=== PATIENT | male | born 1950 | race Caucasian/White ===

== ENCOUNTER 2018-01-12 22:03 | Observation (INO) ==
[2018-01-12] MEDS ORDERED: Alteplase (Activase) 81 MG in EMPTY BAG 1 EACH IVPB ONE (22:09)
[2018-01-12] MEDS ORDERED: Alteplase (Activase) 9 MG in EMPTY BAG 1 EACH IVP ONE (22:09)
[2018-01-12] MEDS ORDERED: Isovue-370 500 ML INFUS..BTL IV ONE (22:17)
[2018-01-12 22:29] LABS: Basophils # 0.1 K/mcL (0.0-0.2); Basophils % 0.6 %; Eosinophils # 0.3 K/mcL (0.0-0.6); Eosinophils % 3.5 %; Hematocrit 42.9 % (37.5-50.1); Hemoglobin 14.7 g/dL (12.9-16.9); Immature Granulocytes % 0.3 % (0-4); Lymphocytes # 3.2 K/mcL (0.6-4.6); Lymphocytes % 33.5 %; Mean Corpuscular HGB Conc 34.3 g/dL (31.6-35.5); Mean Corpuscular Hemoglobin 29.6 pg (28.0-33.3); Mean Corpuscular Volume 86.3 fL (83.0-100.0); Mean Platelet Volume 11.7 fL (9.4-12.4); Monocytes # 0.6 K/mcL (0.0-1.3); Monocytes % 5.9 %; Neutrophils # 5.3 K/mcL (1.6-8.9); Platelet Count 215 K/mcL (140-400); Red Blood Count 4.97 M/mcL (4.19-5.50); Red Cell Distribution Width 13.3 % (11.5-14.5); Segmented Neutrophils % 56.2 %
[2018-01-12 22:39] LABS: INR 1.1; Prothrombin Time 12.2 Seconds (9.4-12.1)
[2018-01-12 22:42] LABS: BUN/Creatinine Ratio 17 (6-26); Blood Urea Nitrogen 15 mg/dL (8-23); Calcium 9.2 mg/dL (8.6-10.3); Carbon Dioxide 24 mEq/L (23-29); Chloride 107 mEq/L (98-107); Glucose 102 mg/dL (70-105); Osmolality,Calculated 289 (280-300); Potassium 3.8 mEq/L (3.5-5.1); Sodium 139 mEq/L (136-145); eGFR For African Americans > 60 (> 60); eGFR For Non-African Americans > 60 (> 60)
[2018-01-12 22:43] LABS: Troponin I < 0.03 ng/mL (< 0.04)
--- NOTE | 2018-01-12 23:23 | Emergency Department Note ---
Disposition Clinical Impression: TIA (transient ischemic attack) Qualifiers: Transient cerebral ischemia type: unspecified Qualified Code(s): G45.9 - Transient cerebral ischemic attack, unspecified Disposition: Admitted As Inpatient Condition: Fair Time of Disposition: 12:24 Neuro HPI - General Chief Complaint: ED Neuro Symptoms/Deficit Stated Complaint: Poss Stroke Time Seen by Provider: 01/12/18 22:08 Source: patient Mode of arrival: ambulatory Limitations: no limitations Nursing Notes Reviewed: Yes Vital Signs Reviewed: Yes - History of Present Illness HPI Narrative: Patient is a 67-year-old male who presents to [facility] ED with a chief complaint of slurred speech and generalized weakness. States his symptoms started at 8:30 this evening while he was working in his garage. This was witnessed by his and daughter. gave him an aspirin. Then called the squad. Patient denies any history of stroke. He does have a history of prothrombin G mutation which puts him at higher risk of clotting. states he is supposed to be taking a daily aspirin but he has not been for several days now. Denies any chest pain, difficulty breathing, abdominal pain, problems with urination or bowel movements. Past medical history significant for hypertension. Onset of Symptoms Date: 01/13/18 Onset of Symptoms Time: 20:30 Symptom Onset Unknown: No Timing confirmed by: spouse Location: speech, dysarthria History of same: No Severity: mild Symptoms Improving: Yes Improves with: none Worsens with: none Context: sudden onset On Anticoagulants: No Associated symptoms: Denies: confusion, chest pain, cough, fever/chills, headaches, nausea/vomiting, shortness of breath, syncope, weakness Treatments Prior to Arrival: none - Related Data Home Medications: Home Medications Medication Instructions Recorded Confirmed Aspirin [Lo-Dose Aspirin EC] 81 mg PO DAILY 01/13/18 01/13/18 BuPROPion [Wellbutrin] 100 mg PO BID 01/13/18 01/13/18 Ergocalciferol (VITAMIN D2) 50,000 unit PO FR 01/13/18 01/13/18 [Vitamin D2] Furosemide [Lasix] 20 mg PO DAILY 01/13/18 01/13/18 Losartan [Cozaar] 50 mg PO DAILY 01/13/18 01/13/18 Meloxicam [Mobic] 15 mg PO DAILY 01/13/18 01/13/18 Potassium Chloride [Klor-Con 10 meq PO DAILY 01/13/18 01/13/18 Sprinkle] Allergies/Adverse Reactions: Allergies Allergy/AdvReac Type Severity Reaction Status Date / Time No Known Allergies Allergy Verified 01/13/18 09:19 All systems ED: reviewed and negative except as stated. Past Medical History - Past Medical History Attestation: Yes The following information was validated with the patient. Source: patient Medical history: Reports: cancer, hypertension - Social History Smoking Status: Never smoker Smokeless Tobacco Status: Yes Alcohol use: Reports: none Drug use: Reports: none Physical Exam - General Limitations: no limitations General appearance: alert, in no apparent distress - Head Head exam: atraumatic, normocephalic, normal inspection - Eye Eye exam: Present: normal appearance, EOMI - ENT ENT exam: normal exam, normal oropharynx, mucous membranes moist - Neck Neck exam: Present: normal inspection, full ROM, trachea midline - Chest Chest inspection: Present: normal inspection, symmetric chest wall rise - Respiratory Respiratory exam: Present: normal lung sounds bilaterally - Cardiovascular Cardiovascular exam: Present: regular rate, normal rhythm, normal heart sounds - Abdominal Exam Abdominal exam: Present: soft, Non-Tender. Absent: tenderness, distention, guarding, rebound, rigidity - Extremities Exam Extremities exam: Present: normal inspection, full ROM. Absent: tenderness, pedal edema - Back Exam Back exam: Present: normal inspection, full ROM. Absent: tenderness - Neurological Exam Neurological exam: Present: alert, oriented X3, CN II-XII intact. Absent: motor sensory deficit - Psychiatric Psychiatric exam: Present: normal affect, normal mood - Skin Skin exam: Present: warm, dry, intact, normal color Course Course Narrative: Patient seen and examined. Complaining of slurred speech and generalized weakness. Concern for possible CVA. Stroke alert was activated. He does have an NIH score of 2 including slurred speech and left-sided pronator drift. I did not appreciate any overt weakness on one side or another. CT of the head along with CTA head and CTA of the neck ordered. Patient took an aspirin prior to arrival. - Reevaluation(s) Reevaluation #1: Labwork, CT head unremarkable. We will admit for CVA workup. I discussed with the hospitalist who has accepted patient for admission. Patient's symptoms have resolved. CTA head and neck still pending. Time: 12:21 Vital Signs Temperature 98.1 F 01/12/18 22:05 Pulse Rate 68 01/12/18 22:05 Respiratory Rate 27 01/12/18 22:05 Blood Pressure 170/99 01/12/18 22:05 O2 Sat by Pulse Oximetry 96 01/12/18 22:05 Temperature 97.8 F 01/14/18 05:06 Pulse Rate 60 01/14/18 05:06 Respiratory Rate 15 01/14/18 05:06 Blood Pressure 145/65 01/14/18 05:06 O2 Sat by Pulse Oximetry 96 01/14/18 04:31 Oxygen Delivery Oxygen Delivery Room Air Neuro Symptoms/Deficit - Medical Records Medical records reviewed: Yes I reviewed the patient's medical records. - Lab Data Lab results reviewed: Yes I reviewed the patient's lab results. Result diagrams: 01/14/18 01:13 01/14/18 01:13 Lab Results 01/12/18 01/12/18 01/12/18 Range/Units 22:08 22:08 22:08 WBC 9.4 (4.3-11.1) K/mcL RBC 4.97 (4.19-5.50) M/mcL Hgb 14.7 (12.9-16.9) g/dL Hct 42.9 (37.5-50.1) % MCV 86.3 (83.0-100.0) fL MCH 29.6 (28.0-33.3) pg MCHC 34.3 (31.6-35.5) g/dL RDW 13.3 (11.5-14.5) % Plt Count 215 (140-400) K/mcL MPV 11.7 (9.4-12.4) fL Immature Gran % 0.3 (0-4) % Seg Neutrophils % 56.2 % Lymphocytes % 33.5 % Monocytes % 5.9 % Eosinophils % 3.5 % Basophils % 0.6 % Neutrophils # 5.3 (1.6-8.9) K/mcL Lymphocytes # 3.2 (0.6-4.6) K/mcL Monocytes # 0.6 (0.0-1.3) K/mcL Eosinophils # 0.3 (0.0-0.6) K/mcL Basophils # 0.1 (0.0-0.2) K/mcL PT 12.2 H (9.4-12.1) Seconds INR 1.1 APTT 35.0 (26.0-36.0) Seconds Sodium 139 (136-145) mEq/L Potassium 3.8 (3.5-5.1) mEq/L Chloride 107 (98-107) mEq/L Carbon Dioxide 24 (23-29) mEq/L BUN 15 (8-23) mg/dL Creatinine 0.86 (0.70-1.30) mg/dL Est GFR ( Amer) > 60 (> 60) Est GFR (Non-Af Amer) > 60 (> 60) BUN/Creatinine Ratio 17 (6-26) Glucose 102 (70-105) mg/dL Calculated Osmolality 289 (280-300) Calcium 9.2 (8.6-10.3) mg/dL Troponin I < 0.03 (< 0.04) ng/mL - Radiology Data Radiology results reviewed: Yes I reviewed the patient's radiology results. Head CT 01/12/18 22:08 IMPRESSION: No acute intracranial abnormality. Mild chronic microangiopathic ischemic changes of cerebral white matter. Left maxillary mucosal thickening. Critical results were called by Dr. Kofi Rivera to Dr. Martini on 01/12/2018 at 22:26. D/ / Kofi Rivera / Kofi Rivera Interpreting Provider: Kofi Rivera Head CTA 01/12/18 22:17 IMPRESSION: 1. 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 Otherwise, no intracranial arterial abnormality. 2. No arterial abnormality in the neck. 3. Left maxillary sinusitis. 4. Mild C5-6 degenerative disc disease. D/ / Marty Stearns / Marty Stearns Interpreting Provider: Marty Stearns Neck CTA 01/12/18 22:17 IMPRESSION: 1. 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 Otherwise, no intracranial arterial abnormality. 2. No arterial abnormality in the neck. 3. Left maxillary sinusitis. 4. Mild C5-6 degenerative disc disease. D/ / Marty Stearns / Marty Stearns Interpreting Provider: Marty Stearns Stroke Scale - Level of Consciousness LOC: Alert - LOC Questions LOC Questions: Answers both correctly - LOC Commands LOC Commands: Performs both correctly - Best Gaze Best Gaze: Normal - Visual Visual: No visual loss - Facial Palsy Facial Palsy: Normal - Motor Arms Motor Arm-Left: Drift, does NOT hit bed Motor Arm-Right: No drift for 10 seconds - Motor Legs Motor Leg-Left: No drift for 5 seconds Motor Leg-Right: No drift for 5 seconds - Limb Ataxia Limb Ataxia: Normal, No Ataxia - Sensory Sensory: Normal - Best Language Best Language: No aphasia - Dysarthria Dysarthria: Mild, slurs some words - Extinction and Inattention Extinction and Inattention: Normal - NIHSS Total Score NIHSS Total Score: 2 Attestation Statement - Attestation Attestation: I examined this patient and my medical decision-making was reviewed with the Resident Physician. I agree with the documented findings, disposition and treatment plan as described except to the extent set forth below. Findings consistent with possible TIA. Symptoms are now resolved, asa was given prior to arrival at the ED. Patient will be admitted for medical maximization and advanced testing. NIH score was 0 at time of admission,
--- NOTE | 2018-01-13 01:52 | Internal Med History&Physical ---
Date of Encounter: 01/13/18 Internal Medicine - H&P: HPI History of present illness: Mr. Gaytan is a 67 year old male who presents to [facility] ED with a chief complaint of slurred speech and generalized weakness. States his symptoms started at 8:30 this evening while he was working in his garage. This was witnessed by his and daughter. gave him an aspirin. Then called the squad. Patient denies any history of stroke. He does have a history of prothrombin G mutation which puts him at higher risk of clotting. states he is supposed to be taking a daily aspirin but he has not been for several days now. Denies any chest pain, difficulty breathing, abdominal pain, problems with urination or bowel movements. Past medical history significant for hypertension. Past Med Surg Social Fam HX - Past Medical History Medical history: cancer, hypertension Additional medical history: Prothrombin gene mutation Psychiatric history: depression - Past Surgical History Additional surgical history: skin cancer,right total knee - Social History Smoking Status: Never smoker Smokeless Tobacco Status: Yes Alcohol use: none Drug use: none - Family History Mother Living Status: Cause of : cancer Hx Family Cancer: Yes Hx Family Endocrine Disorder: Yes (diabetes) Father Living Status: Cause of : cancer Hx Family Cardiac Disorders: Yes Hx Family Cancer: Yes Internal Medicine - H&P: Meds Aspirin [Lo-Dose Aspirin EC] 81 mg PO DAILY 01/13/18 [History] BuPROPion [Wellbutrin] 100 mg PO BID 01/13/18 [History] Furosemide [Lasix] 20 mg PO DAILY 01/13/18 [History] Losartan [Cozaar] 50 mg PO DAILY 01/13/18 [History] Meloxicam [Mobic] 15 mg PO DAILY 01/13/18 [History] Potassium Chloride [Klor-Con Sprinkle] 10 meq PO DAILY 01/13/18 [History] 3 Allergy/AdvReac Type Severity Reaction Status Date / Time No Known Allergies Allergy Verified 05/26/15 09:15 All Systems PM: A 10-system review of systems was performed and is negative for pertinent findings except as documented above in the HPI. - Constitutional Vitals: Temp Pulse Resp BP Pulse Ox 98.2 F 59 17 171/97 97 01/13/18 00:27 01/13/18 00:27 01/13/18 00:27 01/13/18 00:27 01/13/18 01:00 Internal Med - H&P Results - Labs CBC & Chem 7: 01/13/18 03:36 01/12/18 22:08 - Assessment and plan (1) TIA (transient ischemic attack) Current Visit: Yes Status: Acute Assessment and plan: TIA PLAN: -CPP x 2 q 8 hr -EKG now and in AM -ASA -Tylenol 650 mg PO q 4-6 hr PRN headache Qualifiers: Transient cerebral ischemia type: unspecified Qualified Code(s): G45.9 - Transient cerebral ischemic attack, unspecified (2) DVT prophylaxis Current Visit: Yes Status: Acute (3) Essential (primary) hypertension Current Visit: Yes Status: Acute - Time Spent With Patient Total time spent is greater than 50% in coordination of care (as documented) at patient's floor/unit and/or counseling patient:
[2018-01-13] MEDS ORDERED: Naloxone 0.4 MG/ML INJ IVP PRN (02:28)
[2018-01-13] MEDS ORDERED: Acetaminophen 325 MG TABLET PO PRN (02:28)
[2018-01-13 03:41] LABS: Bilirubin,Urine Negative (Negative); Blood,Urine Negative (Negative); Clarity,Urine Clear (Clear); Color,Urine Yellow (Yellow); Glucose,Urine (UA) Normal (Normal); Ketones,Urine Negative (Negative); Leukocyte Esterase,Urine Negative (Negative); Nitrite,Urine Negative (Negative); PH,Urine 5.5 pH Units (5.0-8.0); Protein,Urine Negative (Neg-Trace); Specific Gravity,Urine > 1.030 (1.010-1.025); Urobilinogen,Urine Normal (Normal)
[2018-01-13 04:31] LABS: Basophils # 0.1 K/mcL (0.0-0.2); Basophils % 0.7 %; Eosinophils # 0.3 K/mcL (0.0-0.6); Eosinophils % 3.6 %; Hematocrit 40.2 % (37.5-50.1); Hemoglobin 13.5 g/dL (12.9-16.9); Immature Granulocytes % 0.2 % (0-4); Lymphocytes # 3.1 K/mcL (0.6-4.6); Lymphocytes % 37.1 %; Mean Corpuscular HGB Conc 33.6 g/dL (31.6-35.5); Mean Corpuscular Hemoglobin 29.1 pg (28.0-33.3); Mean Corpuscular Volume 86.6 fL (83.0-100.0); Mean Platelet Volume 11.8 fL (9.4-12.4); Monocytes # 0.5 K/mcL (0.0-1.3); Monocytes % 6.4 %; Neutrophils # 4.4 K/mcL (1.6-8.9); Platelet Count 200 K/mcL (140-400); Red Blood Count 4.64 M/mcL (4.19-5.50); Red Cell Distribution Width 13.3 % (11.5-14.5)
[2018-01-13 04:39] LABS: INR 1.2; Prothrombin Time 12.6 Seconds (9.4-12.1)
[2018-01-13 04:42] LABS: Activated Partial Thrombo Time 33.6 Seconds (26.0-36.0)
[2018-01-13 04:56] LABS: Alanine Aminotransferase 27 Units/L (7-52); Albumin 3.8 g/dL (3.5-5.7); Albumin/Globulin Ratio 1.5 (1.1-2.2); Alkaline Phosphatase 62 Units/L (34-104); Aspartate Amino Transferase 18 Units/L (13-39); BUN/Creatinine Ratio 16 (6-26); Bilirubin,Total 0.5 mg/dL (0.3-1.0); Blood Urea Nitrogen 13 mg/dL (8-23); Carbon Dioxide 27 mEq/L (23-29); Chloride 106 mEq/L (98-107); Chol/HDL Ratio 5.2 (0-4.9); Cholesterol 170 mg/dL (< 200); Globulin 2.5 g/dL (2.4-3.5); Glucose 115 mg/dL (70-105); HDL Cholesterol 33 mg/dL (40-59); LDL Cholesterol,Calculated 116 mg/dL (0-99); Magnesium 2.1 mg/dL (1.6-2.6); Osmolality,Calculated 287 (280-300); Phosphorous 2.8 mg/dL (2.7-4.5); Potassium 3.7 mEq/L (3.5-5.1); Sodium 138 mEq/L (136-145); Total Protein 6.3 g/dL (6.4-8.9); Triglycerides 103 mg/dL (< 150); eGFR For African Americans > 60 (> 60); eGFR For Non-African Americans > 60 (> 60)
[2018-01-13] MEDS: Furosemide 20 MG TABLET PO SCH (07:45)
[2018-01-13] MEDS: Aspirin Enteric Coated 81 MG Tablet PO SCH (11:35)
--- NOTE | 2018-01-13 11:40 | Event Note ---
Date of Encounter: 01/13/18 Time of Encounter: 11:25 S: Patient had no acute events after admission. He states that he is feeling "much better." states speech and strength back to normal. He denies any neurological deficits at this time. We discussed importance of medication compliance today. He has some peripheral vision difficulties out of left eye. O: Gen - Awake, alert, oriented, no acute distress HEENT - NCAT, PERRLA, EOMI, no facial droop, hearing grossly intact, oropharynx benign CV - RRR, normal S1 and S2, no M/R/G, no BLE edema Resp - Normal WOB, CTAB, no W/R/R GI - Soft, NT/ND, no masses, normal bowel sounds, no HSP Neuro - No focal deficits, strength and sensation equal bilaterally, CN grossly intact Psych - Normal mood and affect, no depression/anxiety/agitation Skin - Warm, dry, no rashes, hypopigmented area on right cheek A/P: 1) TIA vs CVA - Severe stenosis of right carotid. Elevated LDL. ECHO results pending. Obtain MRI brain. Restart home aspirin. Continue home anti- hypertensives. Start lipitor 40 mg QHS. Neurology consulted; appreciate input. Will await further recommendations. 2) HTN - Continue home medications. 3) DVT Prophylaxis - Start lovenox 40 mg SQ QD and SCDs.
[2018-01-13] MEDS: *HR* Enoxaparin 40 MG/0.4 ML SYRINGE SQ SCH (16:20)
--- NOTE | 2018-01-13 16:25 | Electrocardiograph Report ---
[place] [id number] Test Date: 2018-01-12 Pat Name: Reagan Gaytan Department: 103 Room: E31 Gender: M [employer] Therapist: [place] : [id number] Requested By: Laurie Whitney Order Number: [id number] Reading MD: Jessica Damian Measurements Intervals [place] Rate: 68 P: 34 MO: 190 QRS: 37 QRSD: 91 T: 68 QT: 394 QTc: 412 Interpretive Statements SINUS RHYTHM WITH SINUS ARRHYTHMIA Electronically Signed On 01-13-2018 16:24:03 EDT by Jessica Damian
--- NOTE | 2018-01-13 16:51 | Neurology - Consult Note ---
Date of Encounter: 01/13/18 Time of Encounter: 16:45 Assessment and Plan (1) TIA (transient ischemic attack) Current Visit: Yes Status: Acute I agree that this gentleman is more than likely experienced an episode of transient ischemia. He does have stroke risk factors including hypertension and hyperlipidemia. His blood pressure has been at times been elevated with a systolic in the 170s and diastolic in the 100s. This may have resulted in transient vasospasm producing his results. However I am also concerned that since he is presented with crossed findings i.e., Right facial droop and left- sided weakness I would localize this to the brainstem. He does have a known severe right intracranial vertebral artery stenosis. Generally speaking this lesion is not amendable without significant risk. I would however like to obtain a DAVY, to rule out aortic arch atheroma. At this juncture I would normalize his blood pressure and aggressively treat his stroke risk factors. I would also recommend Plavix 75 mg indefinitely. I would not be in favor of any procedure or attempting to catheterize or stent the stenosed right vertebral artery. Considering his age, I would prefer that we simply maintain antiplatelet therapy. I do not think anticoagulation is indicated unless we find another embolic source. I will reassess him tomorrow. Qualifiers: Transient cerebral ischemia type: unspecified Qualified Code(s): G45.9 - Transient cerebral ischemic attack, unspecified History of Present Illness HPI: The chart was reviewed, the patient was seen and examined. Mr. Gaytan is a 67 year old male who is seen for neurologic evaluation secondary to strokelike symptoms. Apparently on the evening of the event he been out working in his garage. He been hanging chandelier I believe. After going in the house, he later remembered that he left a stepladder out in the garage. Apparently he went out to the garage to retrieve the latter which is when this event occurred. Apparently he experienced sudden onset speech difficulty and his daughter was present today felt as though he had right facial droop. Initially he complained of left-sided weakness. He also for recent been off his aspirin for a few days. He is known to have a prothrombin gene mutation which may create a hypercoagulable state. Apparently he tried to talk and became increasingly frustrated and became quite emotional his daughter states. He also had some headache initially. The episode lasted for approximately 30 minutes or so and then resolved spontaneously. Apparently his gave him an aspirin while at home prior to coming to the [facility]. Upon arrival his blood pressure was 170/99. He was afebrile. CBC was normal. Electrolytes, BUN and creatinine were normal. Since admission he has had an MRI scan of the brain which was negative for evidence of acute infarct. CTA scan of the brain however reveals severe stenosis of the right intracranial vertebral artery. CTA of the neck was unremarkable. Standard transthoracic echocardiogram was negative. He has been stable since admission. Past Med Surg Social Fam HX - Past Medical History Medical history: cancer, hypertension Additional medical history: Prothrombin gene mutation Psychiatric history: depression - Past Surgical History Additional surgical history: skin cancer,right total knee - Social History Smoking Status: Never smoker Smokeless Tobacco Status: Yes Alcohol use: none Drug use: none - Family History Mother Living Status: Cause of : cancer Hx Family Cancer: Yes Hx Family Endocrine Disorder: Yes (diabetes) Father Living Status: Cause of : cancer Hx Family Cardiac Disorders: Yes Hx Family Cancer: Yes Medications and Allergies Aspirin [Lo-Dose Aspirin EC] 81 mg PO DAILY 01/13/18 [History] BuPROPion [Wellbutrin] 100 mg PO BID 01/13/18 [History] Ergocalciferol (VITAMIN D2) [Vitamin D2] 50,000 unit PO FR 01/13/18 [History] Furosemide [Lasix] 20 mg PO DAILY 01/13/18 [History] Losartan [Cozaar] 50 mg PO DAILY 01/13/18 [History] Meloxicam [Mobic] 15 mg PO DAILY 01/13/18 [History] Potassium Chloride [Klor-Con Sprinkle] 10 meq PO DAILY 01/13/18 [History] 3 Allergy/AdvReac Type Severity Reaction Status Date / Time No Known Allergies Allergy Verified 01/13/18 09:19 All Systems: The remainder of the systems were reviewed and are negative Review of Systems: The balance of the systems review is negative. Physical Examination - Vital Signs Vital Signs: Initial Vital Signs Temp Pulse Resp BP Pulse Ox 98.1 F 68 27 170/99 96 01/12/18 22:05 01/12/18 22:05 01/12/18 22:05 01/12/18 22:05 01/12/18 22:05 - Neurologic Detailed motor examination: full strength in all major muscle groups Motor examination - right side: 11/22: deltoids, biceps, triceps, wrist flexion, wrist extension, restaurant supervisor, hip flexors, tibialis Anterior, quadriceps, toe extension (EHL), plantarflexion Motor examination - left side: 11/22: deltoids, biceps, triceps, wrist flexion, wrist extension, hip flexors, restaurant supervisor, quadriceps, tibialis Anterior, toe extension (EHL), plantarflexion Mental Status Examination: awake, alert, oriented to person, oriented to place, oriented to time, follows commands appropriately, answers questions appropriately, no agnosia, no aphasia, no aproxia Cranial nerve examination: PERRL, EOMI, visual pleitez intact, corneal reflexes brisk symmetrically, sensory to face intact, mastication intact, no facial asymmetry is present, no dysarthria, hearing is intact symmetrically, soft palate elevates bilaterally upon phonation, gag reflex intact, flexes SCM and trapezius muscles symmetrically with full power, tongue protrudes midline, no atrophy or facial fasiculations present Cerebellar examination: no dysmetria, performs finger to nose and heel to celestin symmetrically without ataxia, no gait ataxia, no truncal ataxia, no difficulty with rapid alternating movements Results - Laboratory Findings CBC and BMP: 01/13/18 03:36 01/13/18 03:36 Abnormal lab findings: Abnormal lab results PT 12.6 Seconds (9.4-12.1) H 01/13/18 03:36 Glucose 115 mg/dL (70-105) H 01/13/18 03:36 Serum Total Protein 6.3 g/dL (6.4-8.9) L 01/13/18 03:36 LDL Cholesterol, Calc 116 mg/dL (0-99) H 01/13/18 03:36 HDL Cholesterol 33 mg/dL (40-59) L 01/13/18 03:36 Cholesterol/HDL Ratio 5.2 (0-4.9) H 01/13/18 03:36 Ur Specific [place] > 1.030 (1.010-1.025) H 01/13/18 03:19 Consult Discharge Plan - Plan Referrals: Regan Burroughs MD [Primary Care Provider] -
[2018-01-14 01:56] LABS: Basophils % 0.5 %; Eosinophils # 0.3 K/mcL (0.0-0.6); Eosinophils % 3.7 %; Hematocrit 40.8 % (37.5-50.1); Hemoglobin 13.9 g/dL (12.9-16.9); Immature Granulocytes % 0.3 % (0-4); Lymphocytes # 3.1 K/mcL (0.6-4.6); Mean Corpuscular HGB Conc 34.1 g/dL (31.6-35.5); Mean Corpuscular Hemoglobin 29.4 pg (28.0-33.3); Mean Corpuscular Volume 86.4 fL (83.0-100.0); Mean Platelet Volume 12.1 fL (9.4-12.4); Monocytes # 0.4 K/mcL (0.0-1.3); Monocytes % 5.6 %; Platelet Count 197 K/mcL (140-400); Red Blood Count 4.72 M/mcL (4.19-5.50); Red Cell Distribution Width 13.2 % (11.5-14.5); Segmented Neutrophils % 50.9 %
[2018-01-14 02:11] LABS: BUN/Creatinine Ratio 18 (6-26); Blood Urea Nitrogen 15 mg/dL (8-23); Carbon Dioxide 25 mEq/L (23-29); Chloride 106 mEq/L (98-107); Glucose 106 mg/dL (70-105); Osmolality,Calculated 287 (280-300); Potassium 3.8 mEq/L (3.5-5.1); Sodium 138 mEq/L (136-145); eGFR For African Americans > 60 (> 60); eGFR For Non-African Americans > 60 (> 60)
[2018-01-14] MEDS: *HR* Enoxaparin 40 MG/0.4 ML SYRINGE SQ SCH (05:48)
[2018-01-14] MEDS ORDERED: Lidocaine Viscous Oral Soln 15 ML SOLUTION MM PRN (08:25)
[2018-01-14] MEDS ORDERED: Tetracaine/Benzocaine/Butamben 200MG/SPRAY (100SPY/BOT) MM ONE (08:26)
[2018-01-14] MEDS ORDERED: 0.9 % Sodium Chloride 500 ML IVC ONE (08:26)
[2018-01-14] MEDS: *HR* Midazolam HCl 5 MG/5 ML VIAL IVP PRN ×2 (09:00→09:05)
[2018-01-14] MEDS: *HR* FentaNYL (PF) 100 MCG/2 ML VIAL IVP PRN ×2 (09:00→09:05)
[2018-01-14] MEDS: Furosemide 20 MG TABLET PO SCH (10:40)
[2018-01-14] MEDS: Aspirin Enteric Coated 81 MG Tablet PO SCH (10:40)
[2018-01-14] MEDS ORDERED: cloNIDine HCl 0.1 MG TABLET PO STA (12:50)
[2018-01-14 15:54] VITALS: BP 116/57
--- NOTE | 2018-01-14 17:09 | Discharge Summary ---
- NOTES TO OUTPATIENT PROVIDER Notes to Outpatient Provider: Follow up with PCP in 2-3 days after discharge. Recheck blood pressure at that time and adjust anti-hypertensives as necessary. Follow up with neurology as directed. Date of Encounter: 01/14/18 Time of Encounter: 12:37 - Discharge Diagnosis (1) TIA (transient ischemic attack) Priority: Primary Status: Acute Qualifiers: Transient cerebral ischemia type: unspecified Qualified Code(s): G45.9 - Transient cerebral ischemic attack, unspecified (2) Essential (primary) hypertension Priority: Secondary Status: Acute (3) HLD (hyperlipidemia) Priority: Secondary Status: Acute Qualifiers: Hyperlipidemia type: mixed hyperlipidemia Qualified Code(s): E78.2 - Mixed hyperlipidemia (4) DVT prophylaxis Priority: Secondary Status: Acute Hospital course: Mr. Gaytan is a 67 year old male for TIA vs CVA. He was admitted to general medical floor with telemetry. Lipid panel was obtained and showed mildly elevated LDL. He was started on atorvastatin 40 mg QHS. His home aspirin 81 mg QD was continued. MRI brain was ordered and showed no acute abnormalities. 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 TTE showed LVEF 55%, mild LV diastolic dysfunction, normal RV structure and function, no significant valvular dysfunction, and no pulmonary hypertension. DAVY showed normal appearing aorta. Neurology was consulted, and they recommend dual anti-platelet therapy with addition of plavix. They did not feel he was good candidate for any right vertebral artery intervention. BP was elevated and home losartan was continued. Dose was doubled and BP improved. I spoke with neurologist today, who stated that he can follow up with them outpatient. Patient states that all neurological deficits have resolved. He will follow up with PCP in 2-3 days after discharge. They can recheck blood pressure at that time and adjust anti-hypertensives as necessary. He will follow up with neurology as directed. Patient has met maximum benefit of this hospitalization and will be discharged home in stable condition. Discharge discussed with: patient, family, nurse, regional engagement consultant (Neurology), other (Pharmacist) - Time Spent with Patient Total time spent providing and/or coordinating discharge services: Less than 30 minutes - Discharge Medications Prescriptions: Atorvastatin [Lipitor] 40 mg PO HS 7 Days #7 tablet Clopidogrel [Plavix] 75 mg PO DAILY 7 Days #7 tablet Losartan [Cozaar] 100 mg PO DAILY 7 Days #7 tablet Home Medications: Aspirin [Lo-Dose Aspirin EC] 81 mg PO DAILY 01/13/18 [History] BuPROPion [Wellbutrin] 100 mg PO BID 01/13/18 [History] Ergocalciferol (VITAMIN D2) [Vitamin D2] 50,000 unit PO FR 01/13/18 [History] Furosemide [Lasix] 20 mg PO DAILY 01/13/18 [History] Potassium Chloride [Klor-Con Sprinkle] 10 meq PO DAILY 01/13/18 [History] Atorvastatin [Lipitor] 40 mg PO HS 7 Days #7 tablet 01/14/18 [Rx] Clopidogrel [Plavix] 75 mg PO DAILY 7 Days #7 tablet 01/14/18 [Rx] Losartan [Cozaar] 100 mg PO DAILY 7 Days #7 tablet 01/14/18 [Rx] Allergies/Adverse Reactions: 3 Allergy/AdvReac Type Severity Reaction Status Date / Time No Known Allergies Allergy Verified 01/13/18 09:19 Date of admission: 01/12/18 23:46 Primary care physician: Regan Burroughs MD Consults: 01/13/18 03:45 Consult to Neurology [CONS] Routine Consulting Provider: Neurology [facility] Reason for Consult: TIA Time Notified: 03:45 Call Completed: No Discharging clinician: Obed Dash Anticipated date of discharge: 01/14/18 - Constitutional Vitals: Temp Pulse Resp BP Pulse Ox 97.9 F 59 16 116/57 96 01/14/18 15:50 01/14/18 15:50 01/14/18 15:50 01/14/18 15:50 01/14/18 15:50 General appearance: Present: cooperative, A&O X 3, pleasant, no acute distress, obese, answers questions appropriately - Eye Eye exam: Present: EOMI, PERRL. Absent: conjunctival injection, nystagmus, scleral icterus - Respiratory Respiratory exam: Present: CTAB. Absent: accessory muscle use, rales, rhonchi, wheezes Additional comments: Normal WOB - Cardiovascular Cardiovascular exam: Present: RRR, +S1, +S2. Absent: diastolic murmur, gallop, rubs, systolic murmur Additional comments: No BLE edema - GI/Abdominal GI/Abdominal exam: Present: normal bowel sounds, soft. Absent: distended, hepatomegaly, mass, splenomegaly, tenderness - Neurological Exam Neurological exam: Present: alert, CN II-XII intact, oriented X3, no focal deficits, strengths equal and symetr throughout. Absent: motor sensory deficit , facial droop, speech deficit - Psychiatric Psychiatric exam: Present: normal affect, normal mood. Absent: agitated, anxious, depressed - Skin Skin exam: Present: dry, intact, warm. Absent: cyanosis, rash - Patient Status Disposition: Home, Self-Care Condition: Good Functional capacity at discharge: independent ambulation Overall status at discharge: patient is progressing back to baseline - Discharge Instructions Follow Up With: Regan Burroughs MD [Primary Care Provider] - Additional Instructions: Follow up with PCP in 2-3 days after discharge. Recheck blood pressure at that time and adjust anti-hypertensives as necessary. Follow up with neurology as directed. - Diet and Activity Activity: resume usual activities as tolerated Diet: low fat, low cholesterol, low salt diet, other (Cardiac Diet)
--- NOTE | 2018-01-14 17:24 | Neurology Progress Note ---
Date of Encounter: 01/14/18 Time of Encounter: 17:21 Assessment and Plan (1) TIA (transient ischemic attack) Current Visit: Yes Status: Acute I believe that Mr. Gaytan has indeed experienced a transient ischemic attack. The major factor here are his general stroke risk factors, along with the prothrombin gene mutation. Perhaps when he was off his aspirin he experienced a transient thrombosis involving the already stenosed right vertebral artery. In any regard I recommend dual antiplatelet therapy. He should not maintaining the Plavix along with aspirin 81 mg daily. Stroke risk factor management is paramount. He does not smoke. I will reevaluate him at your request. Qualifiers: Transient cerebral ischemia type: unspecified Qualified Code(s): G45.9 - Transient cerebral ischemic attack, unspecified Subjective Interval history: The chart was reviewed, the patient was seen and examined. Patient is back to his normal neurologic baseline. He denies any repeat episodes since being admitted. DAVY was completed today, no abnormalities are reported. From a neurologic perspective his workup has been completed. The only outstanding issue is his blood pressure. Objective - Constitutional Vitals: Temp Pulse Resp BP Pulse Ox 97.9 F 59 16 116/57 96 01/14/18 15:50 01/14/18 15:50 01/14/18 15:50 01/14/18 15:50 01/14/18 15:50 - Neurological Exam Motor Examination: Present: full strength in all major muscle groups Motor examination - right side: 5/5: deltoids, biceps, triceps, wrist flexion, wrist extension, statistical machine servicer, hip flexors, tibialis Anterior, quadriceps, toe extension (EHL), plantarflexion Motor examination - left side: 5/5: deltoids, biceps, triceps, wrist flexion, wrist extension, hip flexors, statistical machine servicer, quadriceps, tibialis Anterior, toe extension (EHL), plantarflexion Sensation intact: Present: intact Reflex and gait examination: other (Deep tendon reflexes are 1 symmetrically of the biceps triceps and brachial radialis patellar, absent at the Achilles. Gait is normal.) Mental Status Examination: Present: awake, alert, oriented to person, oriented to place, oriented to time, follows commands appropriately, answers questions appropriately, no agnosia, no aphasia, no aproxia Cranial nerve examination: Present: PERRL, EOMI, visual pleitez intact, corneal reflexes brisk symmetrically, sensory to face intact, mastication intact, no facial asymmetry is present, no dysarthria, hearing is intact symmetrically, soft palate elevates bilaterally upon phonation, gag reflex intact, flexes SCM and trapezius muscles symmetrically with full power, tongue protrudes midline, no atrophy or facial fasiculations present Cerebellar examination: Present: no dysmetria, performs finger to nose and heel to celestin symmetrically without ataxia, no gait ataxia, no truncal ataxia, no difficulty with rapid alternating movements - VTE Documentation of Mechanical Device: Intermittent pneumatic compression device Results - Laboratory Findings CBC and BMP: 01/14/18 01:13 01/14/18 01:13 Abnormal lab findings: Abnormal lab results PT 12.6 Seconds (9.4-12.1) H 01/13/18 03:36 Glucose 106 mg/dL (70-105) H 01/14/18 01:13 Serum Total Protein 6.3 g/dL (6.4-8.9) L 01/13/18 03:36 LDL Cholesterol, Calc 116 mg/dL (0-99) H 01/13/18 03:36 HDL Cholesterol 33 mg/dL (40-59) L 01/13/18 03:36 Cholesterol/HDL Ratio 5.2 (0-4.9) H 01/13/18 03:36 Ur Specific [place] > 1.030 (1.010-1.025) H 01/13/18 03:19 Consult Discharge Plan - Plan Additional Instructions: Follow up with PCP in 2-3 days after discharge. Recheck blood pressure at that time and adjust anti-hypertensives as necessary. Follow up with neurology as directed. Referrals: Regan Burroughs MD [Primary Care Provider] - Prescriptions: Atorvastatin [Lipitor] 40 mg PO HS 7 Days #7 tablet Clopidogrel [Plavix] 75 mg PO DAILY 7 Days #7 tablet Losartan [Cozaar] 100 mg PO DAILY 7 Days #7 tablet
== END 2018-01-14 20:08 | disposition home or self-care (01) ==
LOC: EMEROO 22:03 → 2NENU 22:03
PROVIDERS: ADMIT Internal Medicine Nephrology; ATTEND Internal Medicine Nephrology

== ENCOUNTER 2019-07-25 13:25 | Observation (INO) ==
[2019-07-25] MEDS ORDERED: 0.9 % Sodium Chloride 1,000 ML IVC ONE (13:43)
[2019-07-25 14:05] LABS: Basophils % 0.6 %; Eosinophils # 0.1 K/mcL (0.0-0.6); Eosinophils % 1.1 %; Hemoglobin 14.4 g/dL (12.9-16.9); Immature Granulocytes % 0.3 % (0-4); Lymphocytes % 13.9 %; Mean Corpuscular HGB Conc 34.3 g/dL (31.6-35.5); Mean Corpuscular Hemoglobin 29.8 pg (28.0-33.3); Mean Platelet Volume 11.8 fL (9.4-12.4); Monocytes # 0.7 K/mcL (0.0-1.3); Monocytes % 9.4 %; Neutrophils # 5.4 K/mcL (1.6-8.9); Platelet Count 235 K/mcL (140-400); Red Blood Count 4.83 M/mcL (4.19-5.50); Red Cell Distribution Width 13.2 % (11.5-14.5); Segmented Neutrophils % 74.7 %; White Blood Count 7.3 K/mcL (4.3-11.1)
[2019-07-25 14:10] LABS: INR 1.2; Prothrombin Time 13.4 Seconds (9.4-12.1)
[2019-07-25 14:25] LABS: BUN/Creatinine Ratio 15 (6-26); Blood Urea Nitrogen 13 mg/dL (8-23); Calcium 9.4 mg/dL (8.6-10.3); Carbon Dioxide 24 mEq/L (23-29); Chloride 103 mEq/L (98-107); Glucose 122 mg/dL (70-105); Osmolality,Calculated 279 (280-300); Phosphorous 2.5 mg/dL (2.7-4.5); Potassium 3.8 mEq/L (3.5-5.1); Sodium 134 mEq/L (136-145); eGFR For African Americans > 60 (> 60); eGFR For Non-African Americans > 60 (> 60)
[2019-07-25 14:26] LABS: Troponin I < 0.03 ng/mL (< 0.04)
[2019-07-25 14:42] LABS: Bilirubin,Urine Small (Negative); Blood,Urine Negative (Negative); Clarity,Urine Clear (Clear); Color,Urine Dark Yellow (Yellow); Glucose,Urine (UA) Normal (Normal); Ketones,Urine Negative (Negative); Leukocyte Esterase,Urine Negative (Negative); Nitrite,Urine Negative (Negative); Protein,Urine 30 mg/dL (Neg-Trace); Specific Gravity,Urine 1.029 (1.010-1.025); Urobilinogen,Urine Normal (Normal)
[2019-07-25 14:45] LABS: Bacteria,Urine None Seen per hpf (None-Few); Hyaline Casts,Urine Few per lpf (None-Few); RBC,Urine 0-3 per hpf (0-3); Squamous Epithelial Cell,Urine Many per lpf (None-Few); WBC,Urine 0-3 per hpf (0-3)
[2019-07-25] MEDS ORDERED: Ondansetron 4 MG/2 ML VIAL IVP PRN (17:00)
[2019-07-25] MEDS ORDERED: Acetaminophen 325 MG TABLET PO PRN (17:00)
[2019-07-25] MEDS ORDERED: Ringers Solution, Lactated 1,000 ML IVC SCH (17:00)
[2019-07-25 19:09] LABS: Adenovirus Not Detected (Not Detect); Coronavirus 229E Not Detected (Not Detect); Coronavirus HKU1 Not Detected (Not Detect); Coronavirus NL63 Not Detected (Not Detect); Coronavirus OC43 Not Detected (Not Detect); Human Metapneumovirus Not Detected (Not Detect); Human Rhinovirus/Enterovirus Not Detected (Not Detect)
[2019-07-25 19:10] LABS: Bordetella Pertussis Not Detected (Not Detect); Chlamydophila pneumoniae Not Detected (Not Detect); Influenza B Not Detected (Not Detect); Mycoplasma pneumoniae Not Detected (Not Detect); Parainfluenza Virus 1 Not Detected (Not Detect); Parainfluenza Virus 2 Not Detected (Not Detect); Parainfluenza Virus 3 Not Detected (Not Detect); Parainfluenza Virus 4 Not Detected (Not Detect); Respiratory Syncytial Virus Not Detected (Not Detect)
[2019-07-25 19:13] LABS: Influenza A Subtype 2009 H1 DETECTED (Not Detect)
[2019-07-26 05:39] LABS: Estimated Average Glucose 117 mg/dl; Hematocrit 38.8 % (37.5-50.1); Mean Corpuscular HGB Conc 33.5 g/dL (31.6-35.5); Mean Corpuscular Hemoglobin 29.5 pg (28.0-33.3); Mean Corpuscular Volume 88.2 fL (83.0-100.0); Mean Platelet Volume 11.9 fL (9.4-12.4); Platelet Count 199 K/mcL (140-400); Red Cell Distribution Width 13.2 % (11.5-14.5); White Blood Count 4.9 K/mcL (4.3-11.1)
[2019-07-26] MEDS ORDERED: *HR* Enoxaparin 40 MG/0.4 ML SYRINGE SQ SCH (06:00)
[2019-07-26 06:06] LABS: BUN/Creatinine Ratio 13 (6-26); Blood Urea Nitrogen 11 mg/dL (8-23); Calcium 8.6 mg/dL (8.6-10.3); Carbon Dioxide 21 mEq/L (23-29); Chloride 104 mEq/L (98-107); Chol/HDL Ratio 5.3 (0-4.9); Cholesterol 147 mg/dL (< 200); Glucose 106 mg/dL (70-105); HDL Cholesterol 28 mg/dL (40-59); LDL Cholesterol,Calculated 104 mg/dL (0-99); Magnesium 1.9 mg/dL (1.6-2.6); Osmolality,Calculated 282 (280-300); Phosphorous 2.6 mg/dL (2.7-4.5); Potassium 3.4 mEq/L (3.5-5.1); Sodium 136 mEq/L (136-145); Triglycerides 73 mg/dL (< 150); Troponin I < 0.03 ng/mL (< 0.04); eGFR For African Americans > 60 (> 60); eGFR For Non-African Americans > 60 (> 60)
[2019-07-26 07:37] VITALS: BP 149/76
[2019-07-26] MEDS ORDERED: Aspirin Enteric Coated 81 MG Tablet PO SCH (09:00)
[2019-07-26] MEDS ORDERED: Furosemide 20 MG TABLET PO SCH (09:00)
== END 2019-07-26 16:31 | disposition home or self-care (01) ==
LOC: EMEROOARM 13:25 → 3ANU 13:25 → SUATTDRO 18:28 → 3ANU 20:03
PROVIDERS: ADMIT Family Medicine; ATTEND Internal Medicine